=== PATIENT | male | born 1965 | race Two or more races ===

== ENCOUNTER 2020-02-09 16:33 | Inpatient (IN) | payer MEDICAID ==
[~2020-02-09] VITALS: Ht 175.3 cm; Wt 84.9 kg
[2020-02-09] MEDS ORDERED: ONDANSETRON ODT 4 MG TAB PO ONE (17:15)
[2020-02-09 17:24] LABS: Basophils # (auto) 0 10 ^3/uL (0-0.2); Eosinophils # (auto) 0 10 ^3/uL (0-0.8); Lymphocytes # (auto) 0.4 10 ^3/uL (0.4-5.4); Mean Corpuscular Volume 93.1 fL (80.0-100.0); Monocytes # (auto) 0.8 10 ^3/uL (0-1.3)
[2020-02-09 17:27] LABS: Basophils % (auto) 0.5 % (0.0-2.0); Hematocrit 42.4 % (41.0-53.0); Hemoglobin 14.5 g/dL (13.5-17.5); Lymphocytes % (auto) 4.2 % (10.0-50.0); Mean Corpuscular Hemoglobin 31.9 pg (28.0-32.0); Mean Corpuscular Hgb Conc. 34.3 g/dL (32.0-36.0); Monocytes % (auto) 8.3 % (0.0-12.0); Neutrophils # (auto) 8.5 10 ^3/uL (1.6-8.6); Nucleated Red Blood Cells % 0.1 %; Platelet Count (auto) 103 10^3/uL (140-450); Red Blood Cells 4.56 10^6/uL (4.5-5.90); Red Cell Distribution Width 14.4 % (11.8-14.3); White Blood Cell 9.8 10^3/uL (4.4-10.8)
[2020-02-09 17:44] LABS: Albumin 4.3 g/dL (3.4-5.0); BUN/Creatinine Ratio 10.8; Calcium 9.3 mg/dL (8.5-10.1); Potassium 3.5 mmol/L (3.5-5.1)
[2020-02-09 17:46] LABS: Bilirubin, Total 3.2 mg/dL (0.2-1.0); Total Protein 8.1 g/dL (6.4-8.2)
[2020-02-09] MEDS ORDERED: SODIUM CHLORIDE 0.9% 1,000 ML IVB ONE (19:04)
[2020-02-09] MEDS ORDERED: MORPHINE SULF INJ 2 MG/ML SYRINGE 1ML IV PRN (19:45)
[2020-02-09] MEDS ORDERED: NITROGLYCERIN 0.4 MG SL TAB SL PRN ×2 (19:45→20:15)
[2020-02-09] MEDS ORDERED: MORPHINE SULF INJ 2 MG/ML SYRINGE 1ML IV ONE (19:45)
[2020-02-09] MEDS ORDERED: ONDANSETRON HCL 4 MG/2 ML VIAL IV ONE (19:45)
[2020-02-09 19:53] LABS: INR 1.24 (0.9-1.15); Partial Thromboplastin Time 25.8 sec (23.64-32.05)
[2020-02-09] MEDS ORDERED: LORazepam 2MG/ML-1ML VIAL IV PRN (20:00)
[2020-02-09] MEDS: SODIUM CHLORIDE 0.9% 1,000 ML IV SCH (20:06)
[2020-02-09] MEDS ORDERED: DEXTROSE (50%) 50ML SYRG IV PRN (20:15)
[2020-02-09] MEDS ORDERED: FOLIC ACID 1 MG TAB PO ONE (20:15)
[2020-02-09] MEDS ORDERED: ZOLPIDEM TARTRATE 5 MG TAB PO PRN (20:15)
[2020-02-09] MEDS ORDERED: ONDANSETRON HCL 4 MG/2 ML VIAL IV PRN (20:15)
[2020-02-09] MEDS ORDERED: MULTIPLE VITAMIN TAB PO ONE (20:15)
[2020-02-09] MEDS ORDERED: THIAMINE 100mg/ml INJ (200mg/2ml VIAL) IM ONE (20:15)
[2020-02-09 20:25] VITALS: BP 135/80
[2020-02-09] MEDS: LORazepam 2MG/ML-1ML VIAL IV SCH (21:45)
[2020-02-09 22:00] VITALS: BP 137/90
[2020-02-09] MEDS: ACCU-CHEK COMFORT CURVE STRIP VI SCH (22:00)
[2020-02-09] MEDS ORDERED: ATORVASTATIN 20 MG TAB PO SCH (22:00)
[2020-02-09] MEDS: InsuLIN REG 1unit/0.01ml Soln (100units/ml) SC SCH (22:00)
[2020-02-10] MEDS: LORazepam 2MG/ML-1ML VIAL IV SCH ×3 (02:00→09:49)
[2020-02-10] MEDS: HYDROmorphone HCL 2 MG/ML VL IV PRN (02:10)
[2020-02-10 05:00] VITALS: BP 141/88
[2020-02-10 05:29] LABS: Basophils # (auto) 0 10 ^3/uL (0-0.2); Eosinophils # (auto) 0 10 ^3/uL (0-0.8); Eosinophils % (auto) 0.1 % (0.0-7.0); Hematocrit 33.8 % (41.0-53.0); Hemoglobin 11.9 g/dL (13.5-17.5); Lymphocytes # (auto) 0.7 10 ^3/uL (0.4-5.4); Lymphocytes % (auto) 9.3 % (10.0-50.0); Mean Corpuscular Hemoglobin 32.8 pg (28.0-32.0); Mean Corpuscular Hgb Conc. 35.3 g/dL (32.0-36.0); Mean Corpuscular Volume 93.1 fL (80.0-100.0); Monocytes # (auto) 1.1 10 ^3/uL (0-1.3); Monocytes % (auto) 14.4 % (0.0-12.0); Neutrophils # (auto) 5.7 10 ^3/uL (1.6-8.6); Neutrophils % (auto) 76.2 % (37.0-80.0); Platelet Count (auto) 84 10^3/uL (140-450); Red Blood Cells 3.63 10^6/uL (4.5-5.90); Red Cell Distribution Width 14.2 % (11.8-14.3); White Blood Cell 7.4 10^3/uL (4.4-10.8)
[2020-02-10 05:57] LABS: Potassium 3.7 mmol/L (3.5-5.1)
[2020-02-10 06:05] LABS: Albumin 3.4 g/dL (3.4-5.0); BUN/Creatinine Ratio 19.4; Bilirubin, Total 2.3 mg/dL (0.2-1.0); Magnesium 1.8 mg/dL (1.6-2.6); Total Protein 6.9 g/dL (6.4-8.2)
[2020-02-10] MEDS: InsuLIN REG 1unit/0.01ml Soln (100units/ml) SC SCH (06:18)
[2020-02-10] MEDS: ACCU-CHEK COMFORT CURVE STRIP VI SCH (06:18)
[2020-02-10 06:24] LABS: Urine Amorphous Crystal FEW /hpf (None Seen); Urine Bacteria NONE SEEN /hpf (None Seen); Urine Blood TRACE /uL (Negative); Urine Hyaline Cast MANY /lpf (0 - 2); Urine Mucus FEW (None Seen); Urine Specific Gravity 1.027 (1.001-1.035); Urine WBC 17 /hpf (0 - 3)
[2020-02-10 06:43] LABS: Alcohol, Urine < 3.0 mg/dL (0-5); Amphetamine Screen, Urine NEGATIVE (NEGATIVE); Barbiturate Scree,Urine NEGATIVE (NEGATIVE); Benzodiazephine Screen, Urine NEGATIVE (NEGATIVE); Cannabinoid Screen, Urine NEGATIVE (NEGATIVE); Cocaine Screen, Urine NEGATIVE (NEGATIVE); Opiate Scree,Urine POSITIVE (NEGATIVE); Phencyclidine Screen, Urine NEGATIVE (NEGATIVE)
[2020-02-10 09:00] VITALS: BP 156/92
[2020-02-10] MEDS: MULTIPLE VITAMIN TAB PO SCH (09:49)
[2020-02-10] MEDS: SODIUM CHLORIDE 0.9% 1,000 ML IV SCH (09:49)
[2020-02-10] MEDS: FOLIC ACID 1 MG TAB PO SCH (09:49)
[2020-02-10] MEDS: DOCUSATE SOD 100 MG CAP PO SCH (09:50)
[2020-02-10] MEDS ORDERED: FOLIC ACID 1 MG, MULTIPLE VITAMIN 10 ML, MAGNESIUM SULF SDV 50% 8 MEQ in D5W 5% 1,000 ML INJ ONE (12:00)
[2020-02-10 12:55] VITALS: BP 134/78
[2020-02-10 17:05] VITALS: BP 140/86
[2020-02-10 21:09] VITALS: BP 147/95
[2020-02-11] MEDS: SODIUM CHLORIDE 0.9% 1,000 ML IV SCH (00:37)
[2020-02-11 05:00] VITALS: BP 134/88
[2020-02-11 05:47] LABS: Basophils # (auto) 0 10 ^3/uL (0-0.2); Basophils % (auto) 0.4 % (0.0-2.0); Eosinophils # (auto) 0 10 ^3/uL (0-0.8); Eosinophils % (auto) 0.4 % (0.0-7.0); Hematocrit 29.4 % (41.0-53.0); Hemoglobin 10.5 g/dL (13.5-17.5); Lymphocytes # (auto) 0.7 10 ^3/uL (0.4-5.4); Lymphocytes % (auto) 13.4 % (10.0-50.0); Mean Corpuscular Hemoglobin 33.2 pg (28.0-32.0); Mean Corpuscular Hgb Conc. 35.6 g/dL (32.0-36.0); Mean Corpuscular Volume 93.3 fL (80.0-100.0); Monocytes # (auto) 0.9 10 ^3/uL (0-1.3); Monocytes % (auto) 17.3 % (0.0-12.0); Neutrophils # (auto) 3.6 10 ^3/uL (1.6-8.6); Neutrophils % (auto) 68.5 % (37.0-80.0); Nucleated Red Blood Cells % 0.1 %; Platelet Count (auto) 81 10^3/uL (140-450); Red Blood Cells 3.16 10^6/uL (4.5-5.90); White Blood Cell 5.2 10^3/uL (4.4-10.8)
[2020-02-11 06:07] LABS: Potassium 3.3 mmol/L (3.5-5.1)
[2020-02-11 06:17] LABS: Albumin 3.2 g/dL (3.4-5.0); BUN/Creatinine Ratio 16.4; Bilirubin, Total 1.7 mg/dL (0.2-1.0); Total Protein 6.5 g/dL (6.4-8.2)
[2020-02-11 09:00] VITALS: BP 134/80
[2020-02-11] MEDS: FOLIC ACID 1 MG TAB PO SCH (10:00)
[2020-02-11] MEDS: DOCUSATE SOD 100 MG CAP PO SCH (10:00)
[2020-02-11] MEDS: MULTIPLE VITAMIN TAB PO SCH (10:00)
[2020-02-11] MEDS ORDERED: ceFAZolin 1GM/50ML 100 ML IV ONE (10:04)
[2020-02-11] MEDS ORDERED: fentaNYL CITRATE 100 MCG/2 ML VL ONE ×2 (10:16→11:41)
[2020-02-11] MEDS ORDERED: MIDAZOLAM HCL 1MG/1ML-2 ML VIAL ONE (10:17)
[2020-02-11] MEDS ORDERED: PROPOFOL 10 MG/ML 20 ML IV ONE (10:38)
[2020-02-11] MEDS ORDERED: BUPIVACAINE W/ EPINEPH 0.25% INJ 50ML MDV ONE (10:54)
[2020-02-11] MEDS ORDERED: POTASSIUM CHL 20 Meq TABLET PO ONE (11:00)
[2020-02-11] MEDS ORDERED: hydrALAZINE HCL 20 MG/ML VL IV PRN (11:45)
[2020-02-11] MEDS ORDERED: HYDROmorphone HCL 2 MG/ML VL IV PRN ×2 (11:45)
[2020-02-11] MEDS ORDERED: ONDANSETRON HCL 4 MG/2 ML VIAL IV PRN (11:45)
[2020-02-11] MEDS ORDERED: ePHEDrine SULFATE 50 MG/ML AMP IV PRN (11:45)
[2020-02-11] MEDS ORDERED: ceFAZolin 1GM/50ML 50 ML IV SCH (12:00)
[2020-02-11] MEDS ORDERED: HYDROmorphone HCL 2 MG/ML VL ONE (12:21)
[2020-02-11] MEDS: HYDROmorphone HCL 2 MG/ML VL IV PRN ×4 (12:22→21:44)
[2020-02-11] MEDS: LACTATED RINGER'S 1,000 ML IV SCH ×2 (13:26→21:54)
[2020-02-11 17:23] VITALS: BP 144/94
[2020-02-11 21:39] VITALS: BP 156/102
[2020-02-12 05:00] VITALS: BP 147/93
[2020-02-12] MEDS: ceFAZolin 1GM/50ML 50 ML IV SCH ×2 (06:43→13:19)
[2020-02-12 07:01] LABS: Hematocrit 23.8 % (41.0-53.0); Hemoglobin 8.5 g/dL (13.5-17.5); Mean Corpuscular Hemoglobin 33.3 pg (28.0-32.0); Mean Corpuscular Hgb Conc. 35.7 g/dL (32.0-36.0); Platelet Count (auto) 87 10^3/uL (140-450); Red Blood Cells 2.56 10^6/uL (4.5-5.90); Red Cell Distribution Width 14.3 % (11.8-14.3); White Blood Cell 5.9 10^3/uL (4.4-10.8)
[2020-02-12 07:12] LABS: Band Neutrophils % (manual) 0; Basophils % (manual) 0 (0.0-2.0); Blast Cells 0; Eosinophils % (manual) 0 (0-7); Metamyelocytes % 0; Promyelocytes % 0; Reactive Lymphocytes 0
[2020-02-12 07:30] LABS: Albumin 2.5 g/dL (3.4-5.0); BUN/Creatinine Ratio 15.2; Calcium 7.6 mg/dL (8.5-10.1); Potassium 3.4 mmol/L (3.5-5.1)
[2020-02-12 07:34] LABS: Bilirubin, Total 1.6 mg/dL (0.2-1.0); Total Protein 5.6 g/dL (6.4-8.2)
[2020-02-12] MEDS: LACTATED RINGER'S 1,000 ML IV SCH ×2 (07:54→17:54)
[2020-02-12 08:45] LABS: Lymphocytes % (manual) 9 (10.0-50.0); Monocytes % (manual) 15 (0-12); Myelocytes % 1
[2020-02-12 09:00] VITALS: BP 148/54
[2020-02-12] MEDS: MULTIPLE VITAMIN TAB PO SCH (09:23)
[2020-02-12] MEDS: FOLIC ACID 1 MG TAB PO SCH (09:23)
[2020-02-12] MEDS: DOCUSATE SOD 100 MG CAP PO SCH (09:23)
[2020-02-12] MEDS: HYDROcodone-ACET 5/325MG TAB PO PRN ×3 (10:08→23:23)
[2020-02-12 13:00] VITALS: BP 130/84
[2020-02-12 17:00] VITALS: BP 117/80
[2020-02-12] MEDS ORDERED: POTASSIUM CHLORIDE 8 MEQ TAB PO ONE (18:15)
[2020-02-12 22:00] VITALS: BP 131/82
[2020-02-13] VITALS (9 sets, daily range): BP systolic 132–148; BP diastolic 69–96
[2020-02-13] MEDS: LACTATED RINGER'S 1,000 ML IV SCH (02:36)
[2020-02-13 07:06] LABS: Hematocrit 21.8 % (41.0-53.0); Hemoglobin 7.8 g/dL (13.5-17.5); White Blood Cell 4.7 10^3/uL (4.4-10.8)
[2020-02-13 07:08] LABS: Mean Corpuscular Hemoglobin 33.3 pg (28.0-32.0); Mean Corpuscular Hgb Conc. 35.7 g/dL (32.0-36.0); Mean Corpuscular Volume 93.4 fL (80.0-100.0); Platelet Count (auto) 110 10^3/uL (140-450); Red Blood Cells 2.34 10^6/uL (4.5-5.90); Red Cell Distribution Width 14.4 % (11.8-14.3)
[2020-02-13 07:18] LABS: Band Neutrophils % (manual) 0; Basophils % (manual) 0 (0.0-2.0); Blast Cells 0; Eosinophils % (manual) 0 (0-7); Metamyelocytes % 0; Myelocytes % 0; Promyelocytes % 0; Reactive Lymphocytes 0
[2020-02-13 08:29] LABS: Lymphocytes % (manual) 20 (10.0-50.0); Monocytes % (manual) 16 (0-12)
[2020-02-13] MEDS: DOCUSATE SOD 100 MG CAP PO SCH (10:01)
[2020-02-13] MEDS: FOLIC ACID 1 MG TAB PO SCH (10:01)
[2020-02-13] MEDS: MULTIPLE VITAMIN TAB PO SCH (10:02)
[2020-02-13] MEDS ORDERED: POTASSIUM CHL 20 Meq TABLET PO ONE (11:00)
[2020-02-13] MEDS: HYDROcodone-ACET 5/325MG TAB PO PRN ×2 (11:39→18:52)
[2020-02-13] MEDS: chlordiazePOXIDE HCL 5 MG CAP PO SCH ×3 (11:40→23:57)
[2020-02-14] VITALS (7 sets, daily range): BP systolic 136–155; BP diastolic 85–94
[2020-02-14] MEDS: HYDROcodone-ACET 5/325MG TAB PO PRN ×4 (01:39→23:54)
[2020-02-14] MEDS: chlordiazePOXIDE HCL 5 MG CAP PO SCH ×4 (05:44→23:54)
[2020-02-14 05:47] LABS: Hemoglobin 8.2 g/dL (13.5-17.5); Mean Corpuscular Hgb Conc. 35.6 g/dL (32.0-36.0)
[2020-02-14 05:49] LABS: Mean Corpuscular Volume 92.8 fL (80.0-100.0); Platelet Count (auto) 126 10^3/uL (140-450); Red Blood Cells 2.48 10^6/uL (4.5-5.90); Red Cell Distribution Width 14.3 % (11.8-14.3); White Blood Cell 4.3 10^3/uL (4.4-10.8)
[2020-02-14 06:21] LABS: Band Neutrophils % (manual) 0; Basophils % (manual) 0 (0.0-2.0); Blast Cells 0; Metamyelocytes % 0; Myelocytes % 0; Promyelocytes % 0; Reactive Lymphocytes 0
[2020-02-14 07:47] LABS: Eosinophils % (manual) 1 (0-7); Lymphocytes % (manual) 11 (10.0-50.0); Monocytes % (manual) 11 (0-12)
[2020-02-14] MEDS: DOCUSATE SOD 100 MG CAP PO SCH (09:25)
[2020-02-14] MEDS: FOLIC ACID 1 MG TAB PO SCH (09:25)
[2020-02-14] MEDS: MULTIPLE VITAMIN TAB PO SCH (09:25)
[2020-02-14] MEDS ORDERED: POTASSIUM CHL 20 Meq TABLET PO ONE (13:30)
[2020-02-15 05:13] VITALS: BP 139/87
[2020-02-15 05:55] LABS: Hematocrit 24.7 % (41.0-53.0); Mean Corpuscular Hemoglobin 33.9 pg (28.0-32.0); Mean Corpuscular Hgb Conc. 36.4 g/dL (32.0-36.0); Mean Corpuscular Volume 93.1 fL (80.0-100.0); Platelet Count (auto) 166 10^3/uL (140-450); Red Blood Cells 2.65 10^6/uL (4.5-5.90); Red Cell Distribution Width 14.4 % (11.8-14.3); White Blood Cell 3.5 10^3/uL (4.4-10.8)
[2020-02-15] MEDS: chlordiazePOXIDE HCL 5 MG CAP PO SCH ×5 (06:09→23:13)
[2020-02-15] MEDS: HYDROcodone-ACET 5/325MG TAB PO PRN (06:10)
[2020-02-15 06:16] LABS: Basophils % (manual) 0 (0.0-2.0); Blast Cells 0; Metamyelocytes % 0; Myelocytes % 0; Promyelocytes % 0; Reactive Lymphocytes 0
[2020-02-15 06:24] LABS: Potassium 3.1 mmol/L (3.5-5.1)
[2020-02-15 06:35] LABS: BUN/Creatinine Ratio 15.8; Calcium 7.9 mg/dL (8.5-10.1)
[2020-02-15 08:05] LABS: Band Neutrophils % (manual) 1; Eosinophils % (manual) 1 (0-7); Lymphocytes % (manual) 26 (10.0-50.0); Monocytes % (manual) 8 (0-12)
[2020-02-15 09:00] VITALS: BP 138/89
[2020-02-15] MEDS: HYDROmorphone HCL 2 MG/ML VL IV PRN ×2 (10:33→22:21)
[2020-02-15] MEDS: MULTIPLE VITAMIN TAB PO SCH (10:34)
[2020-02-15] MEDS: DOCUSATE SOD 100 MG CAP PO SCH (10:34)
[2020-02-15] MEDS: FOLIC ACID 1 MG TAB PO SCH (10:34)
[2020-02-15 13:00] VITALS: BP 177/101
[2020-02-15] MEDS ORDERED: ACETAMINOPHEN 325 MG TAB PO ONE (15:00)
[2020-02-15] MEDS ORDERED: POTASSIUM CHL 20 Meq TABLET PO ONE (15:30)
[2020-02-15] MEDS ORDERED: cloNIDine HCL 0.1 MG TAB PO PRN (15:30)
[2020-02-15] MEDS ORDERED: cefTRIAXone 1GM/50ML D5W 50 ML IV ONE (15:30)
[2020-02-15 17:00] VITALS: BP 143/93
[2020-02-15] MEDS: SODIUM CHLORIDE 0.9% 1,000 ML IV SCH (17:10)
[2020-02-15 22:00] VITALS: BP 129/84
[2020-02-16 05:00] VITALS: BP 137/91
[2020-02-16] MEDS: SODIUM CHLORIDE 0.9% 1,000 ML IV SCH ×2 (05:03→18:43)
[2020-02-16] MEDS: chlordiazePOXIDE HCL 5 MG CAP PO SCH ×3 (05:03→18:42)
[2020-02-16] MEDS: HYDROmorphone HCL 2 MG/ML VL IV PRN ×3 (05:04→20:22)
[2020-02-16 07:14] LABS: Hematocrit 24.8 % (41.0-53.0); Hemoglobin 8.8 g/dL (13.5-17.5); Mean Corpuscular Hemoglobin 32.8 pg (28.0-32.0); Mean Corpuscular Hgb Conc. 35.4 g/dL (32.0-36.0); Mean Corpuscular Volume 92.7 fL (80.0-100.0); Platelet Count (auto) 169 10^3/uL (140-450); Red Blood Cells 2.67 10^6/uL (4.5-5.90); Red Cell Distribution Width 14.4 % (11.8-14.3); White Blood Cell 2.5 10^3/uL (4.4-10.8)
[2020-02-16 07:26] LABS: Potassium 3.8 mmol/L (3.5-5.1)
[2020-02-16 07:33] LABS: Albumin 2.4 g/dL (3.4-5.0); Bilirubin, Total 1.8 mg/dL (0.2-1.0); Total Protein 6.1 g/dL (6.4-8.2)
[2020-02-16 07:44] LABS: Basophils % (manual) 0 (0.0-2.0); Blast Cells 0; Eosinophils % (manual) 0 (0-7); Metamyelocytes % 0; Myelocytes % 0; Promyelocytes % 0; Reactive Lymphocytes 0
[2020-02-16 08:52] LABS: Band Neutrophils % (manual) 1; Lymphocytes % (manual) 17 (10.0-50.0); Monocytes % (manual) 8 (0-12)
[2020-02-16 09:00] VITALS: BP 141/81
[2020-02-16] MEDS: MULTIPLE VITAMIN TAB PO SCH (09:55)
[2020-02-16] MEDS: FOLIC ACID 1 MG TAB PO SCH (09:55)
[2020-02-16] MEDS: cefTRIAXone 1GM/50ML D5W 50 ML IV SCH (09:55)
[2020-02-16] MEDS: DOCUSATE SOD 100 MG CAP PO SCH (09:55)
[2020-02-16 12:58] VITALS: BP 129/75
[2020-02-16 17:00] VITALS: BP 132/85
[2020-02-16 22:39] VITALS: BP 142/90
[2020-02-17] MEDS: chlordiazePOXIDE HCL 5 MG CAP PO SCH ×4 (00:08→18:05)
[2020-02-17] MEDS: HYDROmorphone HCL 2 MG/ML VL IV PRN ×4 (04:07→21:08)
[2020-02-17 05:50] VITALS: BP 148/86
[2020-02-17 05:52] LABS: Hematocrit 25.6 % (41.0-53.0); Hemoglobin 8.9 g/dL (13.5-17.5); Mean Corpuscular Hemoglobin 32.2 pg (28.0-32.0); Mean Corpuscular Hgb Conc. 34.9 g/dL (32.0-36.0); Mean Corpuscular Volume 92.4 fL (80.0-100.0); Platelet Count (auto) 199 10^3/uL (140-450); Red Blood Cells 2.78 10^6/uL (4.5-5.90); Red Cell Distribution Width 14.6 % (11.8-14.3); White Blood Cell 2.6 10^3/uL (4.4-10.8)
[2020-02-17 06:09] LABS: BUN/Creatinine Ratio 19.6; Basophils % (manual) 0 (0.0-2.0); Blast Cells 0; Calcium 7.6 mg/dL (8.5-10.1); Metamyelocytes % 0; Myelocytes % 0; Potassium 3.9 mmol/L (3.5-5.1); Promyelocytes % 0; Reactive Lymphocytes 0
[2020-02-17 06:27] LABS: Band Neutrophils % (manual) 3; Eosinophils % (manual) 1 (0-7); Lymphocytes % (manual) 21 (10.0-50.0); Monocytes % (manual) 7 (0-12)
[2020-02-17 08:00] VITALS: BP 141/85
[2020-02-17 08:56] VITALS: BP 141/85
[2020-02-17] MEDS: SODIUM CHLORIDE 0.9% 1,000 ML IV SCH (09:13)
[2020-02-17] MEDS: cefTRIAXone 1GM/50ML D5W 50 ML IV SCH (09:14)
[2020-02-17] MEDS: FOLIC ACID 1 MG TAB PO SCH (10:24)
[2020-02-17] MEDS: DOCUSATE SOD 100 MG CAP PO SCH (10:25)
[2020-02-17] MEDS: MULTIPLE VITAMIN TAB PO SCH (10:25)
[2020-02-17] MEDS: HYDROcodone-ACET 5/325MG TAB PO PRN ×2 (11:03→18:29)
[2020-02-17] MEDS ORDERED: FUROSEMIDE 100 MG/10ML VIAL IV ONE (12:00)
[2020-02-17] MEDS ORDERED: POTASSIUM CHL 20 Meq TABLET PO ONE (12:00)
[2020-02-17] MEDS ORDERED: FUROSEMIDE 20 MG/2 ML VIAL ONE (12:22)
[2020-02-17 13:00] VITALS: BP 123/69
[2020-02-17 16:44] VITALS: BP 135/94
[2020-02-17 21:19] VITALS: BP 134/84
[2020-02-18] MEDS: chlordiazePOXIDE HCL 5 MG CAP PO SCH ×2 (00:40→05:57)
[2020-02-18] MEDS: HYDROmorphone HCL 2 MG/ML VL IV PRN ×3 (01:27→11:04)
[2020-02-18] MEDS: HYDROcodone-ACET 5/325MG TAB PO PRN ×2 (03:26→09:36)
[2020-02-18 04:57] VITALS: BP 119/80
[2020-02-18 08:00] VITALS: BP 147/95
[2020-02-18 08:38] VITALS: BP 92/63
[2020-02-18 08:39] VITALS: BP 147/95
[2020-02-18] MEDS: FOLIC ACID 1 MG TAB PO SCH (09:27)
[2020-02-18] MEDS: MULTIPLE VITAMIN TAB PO SCH (09:27)
[2020-02-18] MEDS: DOCUSATE SOD 100 MG CAP PO SCH (09:27)
[2020-02-18] MEDS: cefTRIAXone 1GM/50ML D5W 50 ML IV SCH (09:27)
[2020-02-18] MEDS ORDERED: FUROSEMIDE 20 MG/2 ML VIAL IV ONE (11:30)
[2020-02-18] MEDS ORDERED: POTASSIUM CHL 20 Meq TABLET PO ONE (11:30)
[2020-02-18 12:15] VITALS: BP 113/69
[2020-02-18 12:49] VITALS: BP 113/69
== END 2020-02-18 15:15 | disposition home health service (06) | DRG 308 ==
LOC: EDBD 16:33 → EDSEX 16:33 → EDUNIT# 16:33 → ER 16:33 → TELE-CENTR 16:34 → TELE-EAST 02-11 23:45 → EAST 02-14 14:52
PROVIDERS: ADMIT Hospitalist; ATTEND Internal Medicine
PROC: 0JNL0ZZ Release Right Upper Leg Subcutaneous Tissue and Fascia, Open Approach (ICD-10-PCS; 2020-02-11)
PROC: 0QB60ZX Excision of Right Upper Femur, Open Approach, Diagnostic (ICD-10-PCS; 2020-02-11)
PROC: 0QS634Z Reposition Right Upper Femur with Internal Fixation Device, Percutaneous Approach (ICD-10-PCS; principal; 2020-02-11 10:09)
PROC: 30233N1 Transfusion of Nonautologous Red Blood Cells into Peripheral Vein, Percutaneous Approach (ICD-10-PCS; 2020-02-13)
DX: S72.141A Displaced intertrochanteric fracture of right femur, initial encounter for closed fracture (principal); D69.6 Thrombocytopenia, unspecified; E88.09 Other disorders of plasma-protein metabolism, not elsewhere classified; K70.10 Alcoholic hepatitis without ascites; S30.0XXA Contusion of lower back and pelvis, initial encounter; D64.9 Anemia, unspecified; E87.6 Hypokalemia; S72.21XA Displaced subtrochanteric fracture of right femur, initial encounter for closed fracture; F10.239 Alcohol dependence with withdrawal, unspecified; R79.89 Other specified abnormal findings of blood chemistry; M81.0 Age-related osteoporosis without current pathological fracture; I10 Essential (primary) hypertension; Y90.9 Presence of alcohol in blood, level not specified; W18.39XA Other fall on same level, initial encounter; G40.909 Epilepsy, unspecified, not intractable, without status epilepticus; Y93.89 Activity, other specified; Y92.89 Other specified places as the place of occurrence of the external cause; Y99.8 Other external cause status; Z79.899 Other long term (current) drug therapy
CPT/HCPCS: 36415; 70450; 71045; 72192; 73502; 76000; 80048; 80053; 80061; 80307; 81001; 82550; 82728; 82962; 83036; 83615; 83735; 83970; 84132; 84425; 85007; 85025; 85027; 85610; 85652; 85730; 86850; 86900; 86901; 86920; 87040; 87077; 87186; 93005; 93306; 93971; 97110; 97116; 97530; A4565; C1713; C1769; G0378; J0690; J0696; J2250; J2405; J2704; Q0162

== ENCOUNTER 2022-12-03 01:13 | Emergency (ER) | payer MEDICAID, OTHER ==
[~2022-12-03] VITALS: Ht 182.9 cm; Wt 82.0 kg
[2022-12-03 02:25] LABS: Basophils # (auto) 0 10 ^3/uL (0-0.2); Eosinophils # (auto) 0 10 ^3/uL (0-0.8); Eosinophils % (auto) 0.2 % (0.0-7.0); Hemoglobin 12.8 g/dL (13.5-17.5); Lymphocytes # (auto) 0.3 10 ^3/uL (0.4-5.4); Mean Corpuscular Hemoglobin 35.3 pg (28.0-32.0); Monocytes # (auto) 0.5 10 ^3/uL (0-1.3); Nucleated Red Blood Cells % 0.1 %; Red Blood Cells 3.62 10^6/uL (4.5-5.90); Red Cell Distribution Width 14.2 % (11.8-14.3); White Blood Cell 2.8 10^3/uL (4.4-10.8)
[2022-12-03 02:27] LABS: Basophils % (auto) 0.5 % (0.0-2.0); Hematocrit 37.7 % (41.0-53.0); Lymphocytes % (auto) 11.3 % (10.0-50.0); Mean Corpuscular Hgb Conc. 33.8 g/dL (32.0-36.0); Mean Corpuscular Volume 104.1 fL (80.0-100.0); Monocytes % (auto) 16.1 % (0.0-12.0); Neutrophils % (auto) 71.9 % (37.0-80.0)
[2022-12-03 02:41] LABS: INR 1.78 (0.9-1.15); Partial Thromboplastin Time 30.3 sec (24.6-33.4)
[2022-12-03 02:44] LABS: Albumin 2.5 g/dL (3.4-5.0); Anion Gap 8 (5-15); BUN/Creatinine Ratio 16.7; Blood Alcohol < 3.0 mg/dL (0-5); Blood Urea Nitrogen 12 mg/dL (7-18); Carbon Dioxide 28 mmol/L (21-32); Chloride 108 mmol/L (98-107); GFR African American 145 mL/min; GFR Non-African American 120 mL/min; Glucose 101 mg/dL (74-106); Magnesium 1.6 mg/dL (1.6-2.6); Potassium 3.6 mmol/L (3.5-5.1); Sodium 144 mmol/L (136-145)
[2022-12-03 02:56] LABS: Alanine Aminotransferase 61 U/L (16-61); Alkaline Phosphatase 138 U/L (45-117); Aspartate Aminotransferase 119 U/L (15-37); Bilirubin, Total 6.3 mg/dL (0.2-1.0); Total Protein 7.1 g/dL (6.4-8.2)
[2022-12-03] MEDS ORDERED: TETANUS-DIPTH-ACEL PERTUSSIS 0.5ML SYR Tdap IM ONE (04:15)
[2022-12-03] MEDS ORDERED: cefTRIAXone 1GM/50ML D5W 50 ML IV ONE (04:15)
[2022-12-03] MEDS ORDERED: LORazepam 2MG/ML-1ML VIAL IV ONE (04:45)
[2022-12-03] MEDS ORDERED: levETIRAcetam 500 MG/5ML INJ IV ONE (06:12)
[2022-12-03 12:13] VITALS: BP 135/90
== END 2022-12-03 12:30 | disposition short-term general hospital (02) ==
LOC: ER 01:13 → EDBD 01:13 → ER 12:30
DX: S02.40DA Maxillary fracture, left side, initial encounter for closed fracture (principal); S02.2XXA Fracture of nasal bones, initial encounter for closed fracture; S01.511A Laceration without foreign body of lip, initial encounter; S06.9XAA Unspecified intracranial injury with loss of consciousness status unknown, initial encounter; K74.60 Unspecified cirrhosis of liver; R55 Syncope and collapse; F10.239 Alcohol dependence with withdrawal, unspecified; I10 Essential (primary) hypertension; F17.210 Nicotine dependence, cigarettes, uncomplicated; F12.90 Cannabis use, unspecified, uncomplicated; W19.XXXA Unspecified fall, initial encounter; Y93.89 Activity, other specified; Y92.89 Other specified places as the place of occurrence of the external cause; Y99.8 Other external cause status
CPT/HCPCS: 36415; 70450; 70486; 71045; 71250; 72125; 74176; 80053; 80320; 83735; 84484; 85025; 85610; 85730; 90471; 90715; 96365; 96366; 96375; 99285; J0696; J1953; J2060; J7060

== ENCOUNTER 2023-10-17 19:02 | Inpatient (IN) | payer MEDICAID ==
[~2023-10-17] VITALS: Ht 177.8 cm; Wt 84.0 kg
[2023-10-17 20:00] VITALS: PULSE 65; RESP 14; O2SAT 98
[2023-10-17] MEDS ORDERED: LORazepam 2MG/ML-1ML VIAL ONE (20:03)
[2023-10-17] MEDS ORDERED: LORazepam 2MG/ML-1ML VIAL IV ONE ×2 (20:05→22:15)
[2023-10-17] MEDS ORDERED: levETIRAcetam 1000 mg/100ml 100 ML IV ONE (20:15)
[2023-10-17 20:23] LABS: Hematocrit 42.8 % (41.0-53.0); Hemoglobin 14.4 g/dL (13.5-17.5); Mean Corpuscular Hemoglobin 33.8 pg (28.0-32.0); Mean Corpuscular Hgb Conc. 33.5 g/dL (32.0-36.0); Mean Corpuscular Volume 100.9 fL (80.0-100.0); Red Blood Cells 4.24 10^6/uL (4.5-5.90); Red Cell Distribution Width 13.7 % (11.8-14.3); White Blood Cell 6.9 10^3/uL (4.4-10.8)
[2023-10-17 20:32] LABS: Band Neutrophils % (manual) 0; Basophils % (manual) 0 (0.0-2.0); Blast Cells 0; Eosinophils % (manual) 0 (0-7); Metamyelocytes % 0; Myelocytes % 0; Promyelocytes % 0; Reactive Lymphocytes 0
[2023-10-17 20:52] LABS: Alanine Aminotransferase 34 U/L (7-40); Albumin 2.7 g/dL (3.2-4.8); Alkaline Phosphatase 90 U/L (46-116); Anion Gap 16 (5-15); Aspartate Aminotransferase 70 U/L (13-40); BUN/Creatinine Ratio 6.7 (10.0-20.0); Blood Urea Nitrogen 5 mg/dL (9-23); Calcium 8.7 mg/dL (8.5-10.1); Carbon Dioxide 18 mmol/L (20-30); Chloride 98 mmol/L (98-107); Glucose 117 mg/dL (74-106); Sodium 132 mmol/L (136-145)
[2023-10-17 20:53] LABS: Bilirubin, Total 5.1 mg/dL (0.2-1.0); Total Protein 5.9 g/dL (5.7-8.2)
[2023-10-17 22:38] LABS: Lymphocytes % (manual) 22 (10.0-50.0); Monocytes % (manual) 11 (0-12); Platelet Estimate Adequate
[2023-10-18] MEDS ORDERED: CYANOCOBALAMIN (B-12) 1000 MCG/1 ML VIAL IM ONE (00:45)
[2023-10-18] MEDS ORDERED: LORazepam 2MG/ML-1ML VIAL IV PRN ×2 (00:45)
[2023-10-18] MEDS: THIAMINE 100mg/ml INJ (200mg/2ml VIAL) IV SCH ×2 (00:56→10:04)
[2023-10-18] MEDS: FOLIC ACID 1 MG in D5W 5% 50 ML INJ SCH ×2 (01:00→10:06)
[2023-10-18] MEDS ORDERED: ONDANSETRON HCL 4 MG/2 ML VIAL IV PRN (06:15)
[2023-10-18] MEDS ORDERED: NITROGLYCERIN 0.4 MG SL TAB SL PRN (06:15)
[2023-10-18] MEDS ORDERED: MORPHINE SULFATE INJ 2 MG/ml SYRG IV PRN (06:15)
[2023-10-18 07:30] VITALS: PULSE 120; RESP 13; O2SAT 96
[2023-10-18 09:21] LABS: Amphetamine Screen, Urine Neg (NEGATIVE); Barbiturate Scree,Urine Neg (NEGATIVE); Benzodiazephine Screen, Urine Neg (NEGATIVE); Cannabinoid Screen, Urine Pos (NEGATIVE); Cocaine Screen, Urine Neg (NEGATIVE); Opiate Scree,Urine Neg (NEGATIVE); Phencyclidine Screen, Urine Neg (NEGATIVE)
[2023-10-18] MEDS ORDERED: LACTULOSE 20Gm/30ML SOLN PO SCH (10:00)
[2023-10-18] MEDS: FUROSEMIDE 40 MG TAB PO SCH (10:04)
[2023-10-18] MEDS: SPIRONOLACTONE 25 MG TAB PO SCH (10:05)
[2023-10-18 12:02] VITALS: BP 122/93; PULSE 119; RESP 20; TEMP 97.8; O2SAT 93
[2023-10-18] MEDS: LACTULOSE 20Gm/30ML SOLN PO SCH ×3 (12:42→21:26)
[2023-10-18 13:09] VITALS: BP 122/93; PULSE 119; TEMP 97.8; O2SAT 21
[2023-10-18] MEDS: KETOROLAC TROMETH 30 MG/ML 1ML VIAL IV PRN ×2 (13:37→21:26)
[2023-10-18] MEDS ORDERED: FURO40TA4 PO (14:15)
[2023-10-18] MEDS ORDERED: PANT40T PO (14:15)
[2023-10-18] MEDS ORDERED: ESCI1TAB36 PO (14:15)
[2023-10-18] MEDS ORDERED: SPIR100T4 PO (14:15)
[2023-10-18 20:00] VITALS: PULSE 110; PULSE 111; RESP 17; O2SAT 100
[2023-10-18 22:00] VITALS: BP 114/55; PULSE 110; RESP 17; TEMP 98.1; O2SAT 100
[2023-10-18] MEDS ORDERED: HYDROcodone-ACET 5/325MG TAB PO ONE (22:45)
[2023-10-19] VITALS (7 sets, daily range): BP systolic 105–164; BP diastolic 55–91; PULSE 71–107; RESP 18–21; TEMP 97.9–98.6; O2SAT 91–100
[2023-10-19] MEDS: LACTULOSE 20Gm/30ML SOLN PO SCH ×3 (06:01→17:49)
[2023-10-19 06:20] LABS: Basophils # (auto) 0 10 ^3/uL (0-0.2); Eosinophils # (auto) 0 10 ^3/uL (0-0.8); Nucleated Red Blood Cells % 0.1 %
[2023-10-19 06:23] LABS: Basophils % (auto) 0.5 % (0.0-2.0); Eosinophils % (auto) 0.2 % (0.0-7.0); Hemoglobin 10.9 g/dL (13.5-17.5); Lymphocytes # (auto) 0.7 10 ^3/uL (0.4-5.4); Lymphocytes % (auto) 8.8 % (10.0-50.0); Mean Corpuscular Hemoglobin 35.3 pg (28.0-32.0); Mean Corpuscular Hgb Conc. 35.1 g/dL (32.0-36.0); Mean Corpuscular Volume 100.6 fL (80.0-100.0); Monocytes # (auto) 1.4 10 ^3/uL (0-1.3); Monocytes % (auto) 16.9 % (0.0-12.0); Neutrophils # (auto) 6.3 10 ^3/uL (1.6-8.6); Neutrophils % (auto) 73.6 % (37.0-80.0); Red Blood Cells 3.08 10^6/uL (4.5-5.90); Red Cell Distribution Width 13.4 % (11.8-14.3); White Blood Cell 8.5 10^3/uL (4.4-10.8)
[2023-10-19 06:57] LABS: Alanine Aminotransferase 35 U/L (7-40); Albumin 2.4 g/dL (3.2-4.8); Alkaline Phosphatase 72 U/L (46-116); Anion Gap 6 (5-15); Aspartate Aminotransferase 90 U/L (13-40); BUN/Creatinine Ratio 9.4 (10.0-20.0); Bilirubin, Total 7.4 mg/dL (0.2-1.0); Blood Urea Nitrogen 18 mg/dL (9-23); Calcium 8.1 mg/dL (8.7-10.4); Carbon Dioxide 25 mmol/L (20-30); Chloride 97 mmol/L (98-107); Glucose 86 mg/dL (74-106); Potassium 5.3 mmol/L (3.5-5.1); Sodium 128 mmol/L (136-145)
[2023-10-19] MEDS: THIAMINE 100mg/ml INJ (200mg/2ml VIAL) IV SCH (10:01)
[2023-10-19] MEDS: FUROSEMIDE 40 MG TAB PO SCH (10:01)
[2023-10-19] MEDS: SPIRONOLACTONE 25 MG TAB PO SCH (10:01)
[2023-10-19] MEDS: FOLIC ACID 1 MG in D5W 5% 50 ML INJ SCH (10:57)
[2023-10-20] VITALS (7 sets, daily range): BP systolic 109–135; BP diastolic 73–90; PULSE 88–119; RESP 14–20; TEMP 97.6–98.2; O2SAT 88–100
[2023-10-20] MEDS: LACTULOSE 20Gm/30ML SOLN PO SCH ×5 (00:44→21:37)
[2023-10-20] MEDS: THIAMINE 100mg/ml INJ (200mg/2ml VIAL) IV SCH (09:42)
[2023-10-20] MEDS: SPIRONOLACTONE 25 MG TAB PO SCH (09:43)
[2023-10-20] MEDS: KETOROLAC TROMETH 30 MG/ML 1ML VIAL IV PRN ×2 (09:43→17:46)
[2023-10-20] MEDS: FUROSEMIDE 40 MG TAB PO SCH (09:43)
[2023-10-20] MEDS: FOLIC ACID 1 MG in D5W 5% 50 ML INJ SCH (09:50)
[2023-10-20 12:23] LABS: Basophils # (auto) 0 10 ^3/uL (0-0.2); Eosinophils # (auto) 0 10 ^3/uL (0-0.8); Monocytes # (auto) 1.4 10 ^3/uL (0-1.3)
[2023-10-20 12:26] LABS: Basophils % (auto) 0.5 % (0.0-2.0); Eosinophils % (auto) 0.2 % (0.0-7.0); Hematocrit 31.4 % (41.0-53.0); Lymphocytes # (auto) 0.8 10 ^3/uL (0.4-5.4); Lymphocytes % (auto) 7.4 % (10.0-50.0); Mean Corpuscular Hemoglobin 34.8 pg (28.0-32.0); Mean Corpuscular Hgb Conc. 34.9 g/dL (32.0-36.0); Mean Corpuscular Volume 99.7 fL (80.0-100.0); Monocytes % (auto) 14.1 % (0.0-12.0); Neutrophils # (auto) 7.9 10 ^3/uL (1.6-8.6); Neutrophils % (auto) 77.8 % (37.0-80.0); Red Blood Cells 3.15 10^6/uL (4.5-5.90); Red Cell Distribution Width 13.9 % (11.8-14.3); White Blood Cell 10.1 10^3/uL (4.4-10.8)
[2023-10-20 12:58] LABS: Alanine Aminotransferase 38 U/L (7-40); Albumin 2.5 g/dL (3.2-4.8); Alkaline Phosphatase 88 U/L (46-116); Anion Gap 6 (5-15); Aspartate Aminotransferase 82 U/L (13-40); BUN/Creatinine Ratio 11.8 (10.0-20.0); Bilirubin, Total 4.2 mg/dL (0.2-1.0); Blood Alcohol < 3.0 mg/dL (<10); Blood Urea Nitrogen 26 mg/dL (9-23); Calcium 8.3 mg/dL (8.5-10.1); Carbon Dioxide 27 mmol/L (20-30); Chloride 97 mmol/L (98-107); Glucose 105 mg/dL (74-106); Potassium 4.8 mmol/L (3.5-5.1); Sodium 130 mmol/L (136-145); Total Protein 5.4 g/dL (5.7-8.2)
[2023-10-20 13:12] LABS: INR 1.49 (0.9-1.15); Partial Thromboplastin Time 31.3 SEC (24.5-34.5); Prothrombin Time 15.5 sec (9.3-11.8)
[2023-10-20] MEDS ORDERED: OLANZapine 5 MG TAB PO PRN (16:30)
[2023-10-20] MEDS: hydrOXYzine 25 MG TAB or CAP PO PRN (17:46)
[2023-10-21 05:00] VITALS: BP 143/99; PULSE 81; RESP 18; TEMP 98; O2SAT 96
[2023-10-21] MEDS: LACTULOSE 20Gm/30ML SOLN PO SCH ×4 (06:56→22:06)
[2023-10-21] MEDS: KETOROLAC TROMETH 30 MG/ML 1ML VIAL IV PRN ×2 (06:58→15:26)
[2023-10-21 08:00] VITALS: PULSE 100; PULSE 108; O2SAT 100
[2023-10-21 09:00] VITALS: BP 121/80; PULSE 94; RESP 19; TEMP 98.1; O2SAT 97
[2023-10-21] MEDS: hydrOXYzine 25 MG TAB or CAP PO PRN ×2 (09:30→22:06)
[2023-10-21] MEDS: SPIRONOLACTONE 25 MG TAB PO SCH (09:30)
[2023-10-21] MEDS: THIAMINE 100mg/ml INJ (200mg/2ml VIAL) IV SCH (09:31)
[2023-10-21] MEDS: FUROSEMIDE 40 MG TAB PO SCH (09:31)
[2023-10-21] MEDS: FOLIC ACID 1 MG in D5W 5% 50 ML INJ SCH (09:32)
[2023-10-21] MEDS: PANTOPRAZOLE 40 MG/10 ML VIAL INJ IV SCH (11:48)
[2023-10-21 14:47] LABS: Body Fluid Polymorphonuclear 24 % (0-25); Body Fluid Red Blood Cells 1585 CUMM (0-2000); Body Fluid White Blood Cells 50 CUMM (0-200)
[2023-10-21 17:00] VITALS: BP 157/64; PULSE 88; RESP 19; TEMP 97.9; O2SAT 97
[2023-10-21 20:00] VITALS: PULSE 93; O2SAT 100
[2023-10-21 22:00] VITALS: BP 132/51; PULSE 88; RESP 18; TEMP 98; O2SAT 98
[2023-10-22] VITALS (7 sets, daily range): BP systolic 113–132; BP diastolic 57–109; PULSE 76–100; RESP 14–18; TEMP 97.7–98.4; O2SAT 98–100
[2023-10-22] MEDS: KETOROLAC TROMETH 30 MG/ML 1ML VIAL IV PRN ×2 (00:48→18:39)
[2023-10-22] MEDS: LACTULOSE 20Gm/30ML SOLN PO SCH ×4 (06:53→21:10)
[2023-10-22 07:22] LABS: Alanine Aminotransferase 34 U/L (7-40); Alkaline Phosphatase 83 U/L (46-116); Anion Gap 4 (5-15); Aspartate Aminotransferase 72 U/L (13-40); BUN/Creatinine Ratio 14.5 (10.0-20.0); Blood Urea Nitrogen 26 mg/dL (9-23); Calcium 7.7 mg/dL (8.7-10.4); Carbon Dioxide 26 mmol/L (20-30); Chloride 98 mmol/L (98-107); Glucose 86 mg/dL (74-106); Potassium 5.4 mmol/L (3.5-5.1); Sodium 128 mmol/L (136-145)
[2023-10-22 07:23] LABS: Albumin 2.3 g/dL (3.2-4.8); Hemoglobin 10.7 g/dL (13.5-17.5)
[2023-10-22 07:24] LABS: Bilirubin, Total 4.4 mg/dL (0.2-1.0)
[2023-10-22 07:26] LABS: Hematocrit 30.8 % (41.0-53.0); Mean Corpuscular Hemoglobin 34.6 pg (28.0-32.0); Mean Corpuscular Hgb Conc. 34.6 g/dL (32.0-36.0); Mean Corpuscular Volume 99.9 fL (80.0-100.0); Red Blood Cells 3.09 10^6/uL (4.5-5.90)
[2023-10-22 07:30] LABS: Band Neutrophils % (manual) 0; Basophils % (manual) 0 (0.0-2.0); Blast Cells 0; Metamyelocytes % 0; Myelocytes % 0; Promyelocytes % 0; Reactive Lymphocytes 0
[2023-10-22] MEDS: PANTOPRAZOLE 40 MG/10 ML VIAL INJ IV SCH (08:54)
[2023-10-22] MEDS: THIAMINE 100mg/ml INJ (200mg/2ml VIAL) IV SCH (08:54)
[2023-10-22] MEDS: FUROSEMIDE 40 MG TAB PO SCH (08:54)
[2023-10-22] MEDS: SPIRONOLACTONE 25 MG TAB PO SCH (08:54)
[2023-10-22] MEDS: FOLIC ACID 1 MG in D5W 5% 50 ML INJ SCH (08:55)
[2023-10-22 10:06] LABS: Protein, Body Fluid 0.9 g/dL (.)
[2023-10-22 10:51] LABS: Eosinophils % (manual) 2 (0-7); Lymphocytes % (manual) 14 (10.0-50.0); Monocytes % (manual) 14 (0-12); Platelet Estimate Decreased
[2023-10-22 11:45] LABS: COVID19 ANTIGEN SOFIA FIA NEGATIVE (NEGATIVE)
[2023-10-22] MEDS: hydrOXYzine 25 MG TAB or CAP PO PRN (21:10)
[2023-10-23] MEDS ORDERED: CALCIUM CARB 500 MG CHEW TAB PO PRN (01:30)
[2023-10-23] MEDS: KETOROLAC TROMETH 30 MG/ML 1ML VIAL IV PRN ×2 (01:40→08:47)
[2023-10-23 03:53] VITALS: PULSE 85
[2023-10-23 05:00] VITALS: BP 120/76; PULSE 90; RESP 14; TEMP 98; O2SAT 97
[2023-10-23] MEDS: LACTULOSE 20Gm/30ML SOLN PO SCH ×2 (06:14→11:12)
[2023-10-23 07:02] LABS: Basophils # (auto) 0 10 ^3/uL (0-0.2); Basophils % (auto) 0.4 % (0.0-2.0); Eosinophils # (auto) 0.1 10 ^3/uL (0-0.8); Lymphocytes # (auto) 0.8 10 ^3/uL (0.4-5.4); Nucleated Red Blood Cells % 0.1 %
[2023-10-23 07:04] LABS: Eosinophils % (auto) 2.1 % (0.0-7.0); Hematocrit 32.1 % (41.0-53.0); Hemoglobin 11.5 g/dL (13.5-17.5); Lymphocytes % (auto) 12.4 % (10.0-50.0); Mean Corpuscular Hemoglobin 35.7 pg (28.0-32.0); Mean Corpuscular Hgb Conc. 35.9 g/dL (32.0-36.0); Mean Corpuscular Volume 99.4 fL (80.0-100.0); Monocytes # (auto) 1.4 10 ^3/uL (0-1.3); Neutrophils % (auto) 63.5 % (37.0-80.0); Red Blood Cells 3.23 10^6/uL (4.5-5.90); Red Cell Distribution Width 14.3 % (11.8-14.3); White Blood Cell 6.3 10^3/uL (4.4-10.8)
[2023-10-23 07:13] LABS: Alanine Aminotransferase 35 U/L (7-40); Albumin 2.4 g/dL (3.2-4.8); Alkaline Phosphatase 82 U/L (46-116); Anion Gap 5 (5-15); Aspartate Aminotransferase 63 U/L (13-40); BUN/Creatinine Ratio 19.4 (10.0-20.0); Bilirubin, Total 5.5 mg/dL (0.2-1.0); Blood Urea Nitrogen 35 mg/dL (9-23); Calcium 8.1 mg/dL (8.7-10.4); Carbon Dioxide 26 mmol/L (20-30); Chloride 99 mmol/L (98-107); Glucose 87 mg/dL (74-106); Potassium 5.2 mmol/L (3.5-5.1); Sodium 130 mmol/L (136-145); Total Protein 5.2 g/dL (5.7-8.2)
[2023-10-23 07:26] LABS: Monocytes % (auto) 21.6 % (0.0-12.0)
[2023-10-23 08:00] VITALS: PULSE 87
[2023-10-23] MEDS: THIAMINE 100mg/ml INJ (200mg/2ml VIAL) IV SCH (08:47)
[2023-10-23] MEDS: PANTOPRAZOLE 40 MG/10 ML VIAL INJ IV SCH (08:47)
[2023-10-23] MEDS: FUROSEMIDE 40 MG TAB PO SCH (08:47)
[2023-10-23] MEDS: FOLIC ACID 1 MG in D5W 5% 50 ML INJ SCH (08:48)
[2023-10-23 09:41] VITALS: BP 141/105; PULSE 88; RESP 21; TEMP 98.2; O2SAT 97
[2023-10-23] MEDS ORDERED: SPIRONOLACTONE 25 MG TAB PO SCH (10:00)
[2023-10-23 10:15] VITALS: BP 121/65; PULSE 88
== END 2023-10-23 11:15 | DRG 53 ==
LOC: EDBD 19:02 → ER 19:02 → EDUNIT# 19:02 → TELE 10-18 06:10 → TELE-WESTW 10-18 12:14
PROVIDERS: ADMIT Family Medicine; ATTEND Family Medicine
PROC: 0W9G3ZZ Drainage of Peritoneal Cavity, Percutaneous Approach (ICD-10-PCS; principal; 2023-10-21)
DX: G40.401 Other generalized epilepsy and epileptic syndromes, not intractable, with status epilepticus (principal); G92.8 Other toxic encephalopathy; E43 Unspecified severe protein-calorie malnutrition; K76.6 Portal hypertension; K76.82 Hepatic encephalopathy; E72.4 Disorders of ornithine metabolism; K70.31 Alcoholic cirrhosis of liver with ascites; S82.251A Displaced comminuted fracture of shaft of right tibia, initial encounter for closed fracture; E88.09 Other disorders of plasma-protein metabolism, not elsewhere classified; S82.141A Displaced bicondylar fracture of right tibia, initial encounter for closed fracture; T51.0X1A Toxic effect of ethanol, accidental (unintentional), initial encounter; S06.9XAA Unspecified intracranial injury with loss of consciousness status unknown, initial encounter; D75.89 Other specified diseases of blood and blood-forming organs; F12.10 Cannabis abuse, uncomplicated; H57.02 Anisocoria; I10 Essential (primary) hypertension; Z20.822 Contact with and (suspected) exposure to COVID-19; F17.210 Nicotine dependence, cigarettes, uncomplicated; F32.A Depression, unspecified; F41.9 Anxiety disorder, unspecified; F10.129 Alcohol abuse with intoxication, unspecified; Y90.9 Presence of alcohol in blood, level not specified; F10.139 Alcohol abuse with withdrawal, unspecified; V03.10XA Pedestrian on foot injured in collision with car, pick-up truck or van in traffic accident, initial encounter; Y92.410 Unspecified street and highway as the place of occurrence of the external cause; Z68.26 Body mass index [BMI] 26.0-26.9, adult
CPT/HCPCS: 36415; 70450; 70547; 70551; 71045; 71250; 72125; 73700; 74176; 76705; 76942; 80053; 80307; 80320; 82140; 83986; 85007; 85025; 85027; 85610; 85730; 87205; 87426; 89051; 95819; 96365; 96375; 97110; 97116; 97163; 97530; 99291; C9113; G0378; J1885; J2405; J7060

== ENCOUNTER 2023-10-24 02:09 | Inpatient (IN) | payer MEDICAID ==
[~2023-10-24] VITALS: Ht 175.3 cm; Wt 69.7 kg
[~2023-10-24 02:09] MED LIST: ESCI1TAB36 PO; FURO40TA4 PO; PANT40T PO; SPIR100T4 PO
[2023-10-24 03:00] VITALS: PULSE 93; RESP 16; O2SAT 100
[2023-10-24 03:45] LABS: Hematocrit 37.6 % (41.0-53.0); Hemoglobin 12.7 g/dL (13.5-17.5); Mean Corpuscular Hgb Conc. 33.9 g/dL (32.0-36.0); Mean Corpuscular Volume 100.5 fL (80.0-100.0); Red Blood Cells 3.74 10^6/uL (4.5-5.90); Red Cell Distribution Width 14.9 % (11.8-14.3); White Blood Cell 9.1 10^3/uL (4.4-10.8)
[2023-10-24 03:51] LABS: Alanine Aminotransferase 42 U/L (7-40); Albumin 2.8 g/dL (3.2-4.8); Alkaline Phosphatase 117 U/L (46-116); Anion Gap 8 (5-15); Aspartate Aminotransferase 76 U/L (13-40); BUN/Creatinine Ratio 17.1 (10.0-20.0); Blood Urea Nitrogen 37 mg/dL (9-23); Calcium 8.5 mg/dL (8.7-10.4); Carbon Dioxide 23 mmol/L (20-30); Chloride 100 mmol/L (98-107); Glucose 104 mg/dL (74-106); Sodium 131 mmol/L (136-145); Total Protein 6.1 g/dL (5.7-8.2)
[2023-10-24 03:53] LABS: Basophils % (manual) 0 (0.0-2.0); Blast Cells 0; Eosinophils % (manual) 0 (0-7); Metamyelocytes % 0; Myelocytes % 0; Promyelocytes % 0; Reactive Lymphocytes 0
[2023-10-24 04:04] LABS: Potassium 5.7 mmol/L (3.5-5.1)
[2023-10-24 04:14] LABS: Blood Alcohol < 3.0 mg/dL (<10)
[2023-10-24 05:13] LABS: Band Neutrophils % (manual) 4; Lymphocytes % (manual) 6 (10.0-50.0)
[2023-10-24 05:14] LABS: Monocytes % (manual) 17 (0-12); Platelet Estimate Adequate
[2023-10-24] MEDS ORDERED: SODIUM BICARBONATE 8.4 % INJ 50ML VIAL IV ONE (05:15)
[2023-10-24] MEDS ORDERED: ALBUTEROL SULF 2.5 MG/0.5ML(0.5%) NEB SOLN NEB ONE (05:15)
[2023-10-24] MEDS ORDERED: SODIUM ZIRCONIUM CYCL 10 GM PAK PO ONE (05:15)
[2023-10-24] MEDS ORDERED: CALCIUM GLUC 1,000mg/50ml-NS 50 ML IV ONE (05:15)
[2023-10-24] MEDS ORDERED: InsuLIN REG 1unit/0.01ml Soln (100units/ml) IV ONE (05:15)
[2023-10-24] MEDS ORDERED: FUROSEMIDE 40 MG/4 ML VIAL IV ONE (05:15)
[2023-10-24] MEDS ORDERED: DEXTROSE (50%) 50ML SYRG IV ONE (05:15)
[2023-10-24] MEDS ORDERED: LACTULOSE 10g/15ml SOLN 473ML PR ONE (05:15)
[2023-10-24 06:05] LABS: INR 1.36 (0.9-1.15)
[2023-10-24] MEDS ORDERED: DOCUSATE SOD 100 MG CAP PO PRN (06:45)
[2023-10-24] MEDS ORDERED: ONDANSETRON HCL 4 MG/2 ML VIAL IV PRN (06:45)
[2023-10-24] MEDS ORDERED: MORPHINE SULFATE INJ 2 MG/ml SYRG IV PRN (06:45)
[2023-10-24] MEDS ORDERED: DEXTROSE (50%) 50ML SYRG IV PRN (06:45)
[2023-10-24] MEDS ORDERED: SODIUM CHLORIDE 0.9% 1,000 ML IV SCH (06:45)
[2023-10-24] MEDS ORDERED: MAALOX PLUS or MAALOX 30 ML PO PRN (06:45)
[2023-10-24 07:03] LABS: Basophils # (auto) 0 10 ^3/uL (0-0.2); Basophils % (auto) 0.2 % (0.0-2.0); Eosinophils # (auto) 0 10 ^3/uL (0-0.8); Eosinophils % (auto) 0.4 % (0.0-7.0); Hematocrit 32.6 % (41.0-53.0); Lymphocytes # (auto) 0.6 10 ^3/uL (0.4-5.4); Lymphocytes % (auto) 9.7 % (10.0-50.0); Mean Corpuscular Hemoglobin 33.7 pg (28.0-32.0); Mean Corpuscular Hgb Conc. 33.6 g/dL (32.0-36.0); Mean Corpuscular Volume 100.1 fL (80.0-100.0); Monocytes # (auto) 0.4 10 ^3/uL (0-1.3); Monocytes % (auto) 5.8 % (0.0-12.0); Neutrophils # (auto) 5.2 10 ^3/uL (1.6-8.6); Neutrophils % (auto) 83.9 % (37.0-80.0); Red Blood Cells 3.26 10^6/uL (4.5-5.90); Red Cell Distribution Width 14.5 % (11.8-14.3); White Blood Cell 6.2 10^3/uL (4.4-10.8)
[2023-10-24 07:24] LABS: Chloride 97 mmol/L (98-107); Potassium 4.7 mmol/L (3.5-5.1); Sodium 132 mmol/L (136-145)
[2023-10-24 07:25] LABS: Anion Gap 9 (5-15); Carbon Dioxide 26 mmol/L (20-30)
[2023-10-24 07:26] LABS: Calcium 8.1 mg/dL (8.5-10.1)
[2023-10-24 07:30] LABS: BUN/Creatinine Ratio 22.6 (10.0-20.0)
[2023-10-24 07:33] LABS: Blood Urea Nitrogen 52 mg/dL (9-23); Glucose 280 mg/dL (74-106)
[2023-10-24 09:10] VITALS: PULSE 109; RESP 16; O2SAT 96
[2023-10-24] MEDS: InsuLIN REG 1unit/0.01ml Soln (100units/ml) SC SCH ×4 (09:27→21:36)
[2023-10-24] MEDS: ACCU-CHEK COMFORT CURVE STRIP VI SCH ×4 (09:27→21:36)
[2023-10-24] MEDS ORDERED: FUROSEMIDE 40 MG/4 ML VIAL IV SCH (10:00)
[2023-10-24 10:08] LABS: Urine Bacteria FEW /hpf (None Seen); Urine Blood 3+ /uL (Negative); Urine Clarity HAZY (Clear); Urine Color Yellow (Yellow); Urine Hyaline Cast MOD /lpf (0 - 2); Urine Protein, UAD 1+ (Negative); Urine Specific Gravity 1.013 (1.001-1.035); Urine Urobilinogen Normal (Negative); Urine WBC 314 /hpf (0 - 3); Urine WBC Clumps PRESENT /hpf (None Seen)
[2023-10-24 10:16] LABS: Amphetamine Screen, Urine Neg (NEGATIVE); Barbiturate Scree,Urine Neg (NEGATIVE)
[2023-10-24 10:17] LABS: Creatinine, Urine 102.77 mg/dL (30.0-125.0)
[2023-10-24 10:18] LABS: Benzodiazephine Screen, Urine Neg (NEGATIVE); Cocaine Screen, Urine Neg (NEGATIVE)
[2023-10-24 10:19] LABS: Cannabinoid Screen, Urine Pos (NEGATIVE); Opiate Scree,Urine Neg (NEGATIVE); Phencyclidine Screen, Urine Neg (NEGATIVE)
[2023-10-24] MEDS: THIAMINE 100mg/ml INJ (200mg/2ml VIAL) IV SCH (11:16)
[2023-10-24] MEDS: ALBUMIN 25% 50 ML IV SCH ×2 (11:17→17:45)
[2023-10-24] MEDS: FOLIC ACID 1 MG in D5W 5% 50 ML INJ SCH (11:53)
[2023-10-24] MEDS: LACTULOSE 20Gm/30ML SOLN PO SCH ×2 (12:12→18:09)
[2023-10-24] MEDS: chlordiazePOXIDE HCL 25 MG CAP PO SCH ×2 (16:22→21:36)
[2023-10-24 20:00] VITALS: PULSE 92; RESP 18
[2023-10-25] MEDS: LACTULOSE 20Gm/30ML SOLN PO SCH ×5 (00:15→23:44)
[2023-10-25] MEDS: ALBUMIN 25% 50 ML IV SCH (02:04)
[2023-10-25] MEDS: chlordiazePOXIDE HCL 25 MG CAP PO SCH ×4 (06:10→22:10)
[2023-10-25 06:23] LABS: Anion Gap 7 (5-15); Carbon Dioxide 27 mmol/L (20-30); Chloride 99 mmol/L (98-107); Potassium 4.4 mmol/L (3.5-5.1); Sodium 133 mmol/L (136-145)
[2023-10-25 06:25] LABS: Calcium 8.3 mg/dL (8.7-10.4)
[2023-10-25 06:29] LABS: BUN/Creatinine Ratio 21.3 (10.0-20.0); Glucose 85 mg/dL (74-106)
[2023-10-25 06:34] LABS: Blood Urea Nitrogen 33 mg/dL (9-23)
[2023-10-25] MEDS: ACCU-CHEK COMFORT CURVE STRIP VI SCH ×4 (06:44→22:18)
[2023-10-25] MEDS: InsuLIN REG 1unit/0.01ml Soln (100units/ml) SC SCH ×4 (06:45→22:00)
[2023-10-25 07:30] VITALS: PULSE 75; RESP 15; O2SAT 95
[2023-10-25 09:13] LABS: Complement C3 65 mg/dL (82-167)
[2023-10-25 11:37] LABS: Anti-Nuclear Antibody Direct Negative (Negative)
[2023-10-25] MEDS: FOLIC ACID 1 MG in D5W 5% 50 ML INJ SCH (11:58)
[2023-10-25] MEDS: THIAMINE 100mg/ml INJ (200mg/2ml VIAL) IV SCH (11:58)
[2023-10-25] MEDS: rifAMPin 300 MG CAP PO SCH (11:59)
[2023-10-25 15:48] LABS: Basophils # (auto) 0 10 ^3/uL (0-0.2); Eosinophils # (auto) 0.2 10 ^3/uL (0-0.8); Hemoglobin 12.3 g/dL (13.5-17.5); Mean Corpuscular Hgb Conc. 33.3 g/dL (32.0-36.0); Monocytes # (auto) 1.2 10 ^3/uL (0-1.3); Neutrophils # (auto) 3.3 10 ^3/uL (1.6-8.6)
[2023-10-25 15:50] LABS: Basophils % (auto) 0.3 % (0.0-2.0); Eosinophils % (auto) 3.9 % (0.0-7.0); Hematocrit 36.9 % (41.0-53.0); Lymphocytes % (auto) 17.5 % (10.0-50.0); Mean Corpuscular Volume 102.2 fL (80.0-100.0); Monocytes % (auto) 21.4 % (0.0-12.0); Neutrophils % (auto) 56.9 % (37.0-80.0); Red Blood Cells 3.61 10^6/uL (4.5-5.90); Red Cell Distribution Width 15.5 % (11.8-14.3); White Blood Cell 5.8 10^3/uL (4.4-10.8)
[2023-10-25 16:07] LABS: Alanine Aminotransferase 37 U/L (7-40); Albumin 2.9 g/dL (3.2-4.8); Alkaline Phosphatase 76 U/L (46-116); Anion Gap 6 (5-15); Aspartate Aminotransferase 73 U/L (13-40); Bilirubin, Total 7.3 mg/dL (0.2-1.0); Blood Urea Nitrogen 29 mg/dL (9-23); Calcium 8.5 mg/dL (8.7-10.4); Carbon Dioxide 27 mmol/L (20-30); Chloride 100 mmol/L (98-107); Glucose 95 mg/dL (74-106); Potassium 4.6 mmol/L (3.5-5.1); Sodium 133 mmol/L (136-145)
[2023-10-25 16:08] LABS: Total Protein 5.9 g/dL (5.7-8.2)
[2023-10-25 20:00] VITALS: PULSE 85; RESP 16; O2SAT 98
[2023-10-25] MEDS ORDERED: TRAM50TA2 PO (20:29)
[2023-10-25] MEDS ORDERED: CHLO25CA56 PO (20:29)
[2023-10-25] MEDS ORDERED: LACT10SO3 PO (20:29)
[2023-10-25] MEDS ORDERED: SPIR25TA8 PO (20:29)
[2023-10-25] MEDS ORDERED: DOCU-94 PO (20:29)
[2023-10-25] MEDS ORDERED: LOR2I IM (20:29)
[2023-10-25] MEDS ORDERED: FOLI-119 PO (20:29)
[2023-10-25] MEDS ORDERED: OLAN2.5T38 PO (20:29)
[2023-10-25] MEDS ORDERED: HYDR1CAP27 PO (20:29)
[2023-10-25 22:00] VITALS: BP 95/62; PULSE 85; RESP 16; TEMP 97.2; O2SAT 98
[2023-10-26] VITALS (7 sets, daily range): BP systolic 126–137; BP diastolic 57–97; PULSE 80–95; RESP 15–18; TEMP 97.4–98; O2SAT 95–98
[2023-10-26] MEDS: LACTULOSE 20Gm/30ML SOLN PO SCH ×4 (05:46→23:07)
[2023-10-26] MEDS: InsuLIN REG 1unit/0.01ml Soln (100units/ml) SC SCH ×4 (06:10→21:43)
[2023-10-26] MEDS: ACCU-CHEK COMFORT CURVE STRIP VI SCH ×4 (06:10→21:39)
[2023-10-26 08:03] LABS: Hematocrit 35.7 % (41.0-53.0); Mean Corpuscular Hemoglobin 33.5 pg (28.0-32.0); Mean Corpuscular Hgb Conc. 33.5 g/dL (32.0-36.0); Mean Corpuscular Volume 100.2 fL (80.0-100.0); Red Blood Cells 3.57 10^6/uL (4.5-5.90); Red Cell Distribution Width 15.1 % (11.8-14.3); White Blood Cell 5.3 10^3/uL (4.4-10.8)
[2023-10-26 08:06] LABS: Band Neutrophils % (manual) 0; Basophils % (manual) 0 (0.0-2.0); Blast Cells 0; Metamyelocytes % 0; Myelocytes % 0; Promyelocytes % 0; Reactive Lymphocytes 0
[2023-10-26 08:40] LABS: Alanine Aminotransferase 30 U/L (7-40); Alkaline Phosphatase 77 U/L (46-116); Anion Gap 9 (5-15); BUN/Creatinine Ratio 21.8 (10.0-20.0); Blood Urea Nitrogen 27 mg/dL (9-23); Calcium 8.4 mg/dL (8.7-10.4); Carbon Dioxide 25 mmol/L (20-30); Chloride 101 mmol/L (98-107); Glucose 92 mg/dL (74-106); Potassium 4.2 mmol/L (3.5-5.1); Sodium 135 mmol/L (136-145)
[2023-10-26 08:41] LABS: Albumin 2.7 g/dL (3.2-4.8); Aspartate Aminotransferase 51 U/L (13-40); Total Protein 5.5 g/dL (5.7-8.2)
[2023-10-26 09:15] LABS: Bilirubin, Total 7.6 mg/dL (0.2-1.0)
[2023-10-26 11:29] LABS: Eosinophils % (manual) 1 (0-7); Lymphocytes % (manual) 9 (10.0-50.0); Monocytes % (manual) 15 (0-12)
[2023-10-26 11:30] LABS: Platelet Estimate Decreased
[2023-10-26] MEDS: chlordiazePOXIDE HCL 25 MG CAP PO SCH ×2 (11:34→21:39)
[2023-10-26] MEDS: THIAMINE 100mg/ml INJ (200mg/2ml VIAL) IV SCH (11:34)
[2023-10-26] MEDS: FOLIC ACID 1 MG in D5W 5% 50 ML INJ SCH (12:00)
[2023-10-26] MEDS: rifAMPin 300 MG CAP PO SCH (12:00)
[2023-10-27 05:00] VITALS: BP_SYST 125; BP_SYST 132; BP_DIAS 57; BP_DIAS 89; PULSE 92; PULSE 96; RESP 18; RESP 19; TEMP 97.4; TEMP 97.6; O2SAT 94; O2SAT 97
[2023-10-27] MEDS: LACTULOSE 20Gm/30ML SOLN PO SCH ×4 (05:05→23:30)
[2023-10-27] MEDS: ACETAMINOPHEN 325 MG TAB PO PRN ×2 (05:06→21:47)
[2023-10-27] MEDS: InsuLIN REG 1unit/0.01ml Soln (100units/ml) SC SCH ×4 (06:02→21:50)
[2023-10-27] MEDS: ACCU-CHEK COMFORT CURVE STRIP VI SCH ×4 (06:02→21:50)
[2023-10-27 06:41] LABS: Chloride 101 mmol/L (98-107); Potassium 3.9 mmol/L (3.5-5.1)
[2023-10-27 06:42] LABS: Anion Gap 7 (5-15); Carbon Dioxide 21 mmol/L (20-30)
[2023-10-27 06:43] LABS: Calcium 7.9 mg/dL (8.7-10.4)
[2023-10-27 06:47] LABS: BUN/Creatinine Ratio 15.6 (10.0-20.0); Blood Urea Nitrogen 17 mg/dL (9-23); Glucose 101 mg/dL (74-106)
[2023-10-27 06:48] LABS: Sodium 129 mmol/L (136-145)
[2023-10-27] MEDS ORDERED: chlordiazePOXIDE HCL 25 MG CAP PO SCH (07:00)
[2023-10-27 08:44] VITALS: BP 128/81; PULSE 94; RESP 19; TEMP 98.1; O2SAT 99
[2023-10-27 09:20] LABS: Hepatitis B Surface Antigen Negative (Negative)
[2023-10-27 09:41] LABS: Hepatitis A Ab IgM Negative; Hepatitis B Core IgM Negative
[2023-10-27 09:42] LABS: Hepatitis C Antibody Negative (Negative)
[2023-10-27] MEDS: rifAMPin 300 MG CAP PO SCH (10:00)
[2023-10-27] MEDS: FOLIC ACID 1 MG in D5W 5% 50 ML INJ SCH ×2 (10:00→11:38)
[2023-10-27] MEDS: THIAMINE 100mg/ml INJ (200mg/2ml VIAL) IV SCH (11:38)
[2023-10-27] MEDS: SILVER SULFADIAZINE 1 % TOPICAL CREAM 50GM TOP SCH (11:39)
[2023-10-27 13:00] VITALS: BP 122/85; PULSE 85; RESP 19; TEMP 97.7; O2SAT 98
[2023-10-27 14:59] LABS: COVID19 ANTIGEN SOFIA FIA NEGATIVE (NEGATIVE)
[2023-10-27 16:57] LABS: Body Fluid pH 9
[2023-10-27 17:06] VITALS: BP 129/68; PULSE 86; RESP 18; TEMP 98; O2SAT 95
[2023-10-27 18:47] LABS: Body Fluid Polymorphonuclear 18 % (0-25); Body Fluid Red Blood Cells 1028 CUMM (0-2000); Body Fluid White Blood Cells 178 CUMM (0-200)
[2023-10-27 19:06] LABS: Antimyeloperoxidase (MPO) Ab <0.2 units (0.0-0.9); Antiproteinase 3 (PR-3) Ab <0.2 units (0.0-0.9)
[2023-10-27 20:00] VITALS: RESP 16
[2023-10-27 22:14] VITALS: BP 122/85; PULSE 94; RESP 19; TEMP 97.4; O2SAT 100
[2023-10-28 05:00] VITALS: BP 124/48; PULSE 82; RESP 18; TEMP 97.8; O2SAT 98
[2023-10-28] MEDS: LACTULOSE 20Gm/30ML SOLN PO SCH ×2 (06:08→12:00)
[2023-10-28] MEDS: InsuLIN REG 1unit/0.01ml Soln (100units/ml) SC SCH ×2 (06:10→11:21)
[2023-10-28] MEDS: ACCU-CHEK COMFORT CURVE STRIP VI SCH ×2 (06:10→11:20)
[2023-10-28 08:00] VITALS: PULSE 94; RESP 18
[2023-10-28 08:55] VITALS: BP 121/88; PULSE 94; RESP 18; TEMP 98.1; O2SAT 100
[2023-10-28] MEDS: THIAMINE 100mg/ml INJ (200mg/2ml VIAL) IV SCH (09:14)
[2023-10-28] MEDS: rifAMPin 300 MG CAP PO SCH (09:14)
[2023-10-28] MEDS: SILVER SULFADIAZINE 1 % TOPICAL CREAM 50GM TOP SCH (09:14)
[2023-10-28 12:43] VITALS: BP 123/66; PULSE 89; RESP 18; TEMP 98.2; O2SAT 95
[2023-10-28 13:06] LABS: Cytoplasmic (C-ANCA) <1:20 titer (Neg:<1:20); Perinuclear (P-ANCA) <1:20 titer (Neg:<1:20)
[2023-10-28 13:06] LABS: Protein, Body Fluid 1.1 g/dL (.)
[2023-10-29] MEDS ORDERED: FUROSEMIDE 40 MG/4 ML VIAL IV SCH (10:00)
== END 2023-10-28 12:30 | DRG 44 ==
LOC: ER 02:09 → EDBD 02:09 → TELE 06:37 → TELE-EAST 10-25 18:26 → EAST 10-25 18:59
PROVIDERS: ADMIT Hospitalist; ATTEND Family Medicine
PROC: 0W9G3ZZ Drainage of Peritoneal Cavity, Percutaneous Approach (ICD-10-PCS; principal; 2023-10-27)
DX: I61.9 Nontraumatic intracerebral hemorrhage, unspecified (principal); K76.7 Hepatorenal syndrome; K76.82 Hepatic encephalopathy; E43 Unspecified severe protein-calorie malnutrition; K70.31 Alcoholic cirrhosis of liver with ascites; G20.A1 Parkinson's disease without dyskinesia, without mention of fluctuations; N17.9 Acute kidney failure, unspecified; E87.1 Hypo-osmolality and hyponatremia; S82.141A Displaced bicondylar fracture of right tibia, initial encounter for closed fracture; F10.139 Alcohol abuse with withdrawal, unspecified; S00.03XA Contusion of scalp, initial encounter; E11.22 Type 2 diabetes mellitus with diabetic chronic kidney disease; R56.9 Unspecified convulsions; E88.09 Other disorders of plasma-protein metabolism, not elsewhere classified; I12.9 Hypertensive chronic kidney disease with stage 1 through stage 4 chronic kidney disease, or unspecified chronic kidney disease; E87.5 Hyperkalemia; F41.9 Anxiety disorder, unspecified; K80.20 Calculus of gallbladder without cholecystitis without obstruction; N18.9 Chronic kidney disease, unspecified; R74.01 Elevation of levels of liver transaminase levels; F12.10 Cannabis abuse, uncomplicated; Y90.9 Presence of alcohol in blood, level not specified; F10.129 Alcohol abuse with intoxication, unspecified; F17.210 Nicotine dependence, cigarettes, uncomplicated; R79.89 Other specified abnormal findings of blood chemistry; F32.A Depression, unspecified; Z20.822 Contact with and (suspected) exposure to COVID-19; F29 Unspecified psychosis not due to a substance or known physiological condition; J44.9 Chronic obstructive pulmonary disease, unspecified; Z86.73 Personal history of transient ischemic attack (TIA), and cerebral infarction without residual deficits; Z79.84 Long term (current) use of oral hypoglycemic drugs; Z79.899 Other long term (current) drug therapy; Z71.51 Drug abuse counseling and surveillance of drug abuser; Y93.89 Activity, other specified; Y99.8 Other external cause status; V89.2XXA Person injured in unspecified motor-vehicle accident, traffic, initial encounter; Y92.410 Unspecified street and highway as the place of occurrence of the external cause
CPT/HCPCS: 36415; 70450; 71045; 74176; 76705; 76942; 80048; 80053; 80074; 80307; 80320; 81001; 82140; 82306; 82570; 82962; 83520; 83735; 83986; 84100; 84132; 84300; 84484; 85007; 85025; 85027; 85610; 86038; 86160; 86256; 87081; 87086; 87088; 87186; 87205; 87426; 89051; 93005; 94640; 99291; G0378; J1815; J7060